=== PATIENT | female | born 1985 | race Caucasian/White ===

== ENCOUNTER → 2020-04-16 | Outpatient (CLI) | payer OTHER | LOC: M LABSMTC 12:58 | PROVIDERS: ATTEND Family Medicine | DX: Z20.822 Contact with and (suspected) exposure to COVID-19 (principal) | CPT/HCPCS: C9803; U0003 ==

== ENCOUNTER → 2021-03-22 | Outpatient (CLI) | payer OTHER ==
[2021-03-22 10:56] LABS: HEMATOCRIT 35.9 % (36.0-47.0); HEMOGLOBIN 11.5 g/dl (12.0-15.5); MEAN CORPUSCULAR HEMOGLOBIN 31.3 pg (27.0-33.0); MEAN CORPUSCULAR VOLUME 97.8 fl (80.0-96.0); PLATELET COUNT, AUTOMATED 208 10^3/uL (150-450); RED BLOOD COUNT 3.67 10^6/uL (4.00-5.40); WHITE BLOOD COUNT 10.9 10^3/uL (4.0-10.0)
[2021-03-22 12:15] LABS: GC DNA AMPLIFICATION NEGATIVE (NEGATIVE)
== END ==
LOC: M PLALAB 08:41
PROVIDERS: ATTEND Specialist
DX: Z34.82 Encounter for supervision of other normal pregnancy, second trimester (principal)
CPT/HCPCS: 36415; 82950; 85027; 86850; 86900; 86901; 87810; 87850; G0463

== ENCOUNTER → 2021-05-19 | Outpatient (REF) | payer OTHER | LOC: M SFHCWAGY 12:43 | PROVIDERS: ATTEND Advanced Practice Midwife | DX: O09.523 Supervision of elderly multigravida, third trimester (principal) ==

== ENCOUNTER 2021-06-13 01:58 | Inpatient (IN) | payer OTHER ==
[~2021-06-13] VITALS: Ht 177.8 cm; Wt 97.6 kg
[2021-06-13] VITALS (12 sets, daily range): BP systolic 111–182; BP diastolic 58–82
[2021-06-13] MEDS ORDERED: PENICILLIN G POTASSIUM IV 5 MU in D5W MINI-BAG PLUS 100 ML IV STA (02:27)
[2021-06-13] MEDS ORDERED: METHYLERGONOVINE MALEATE 0.2 MG/ML VIAL (J2210) IM PRN (02:30)
[2021-06-13] MEDS ORDERED: LIDOCAINE 1% MDV 20ML VIAL INFIL PRN (02:30)
[2021-06-13] MEDS ORDERED: OXYTOCIN DRIP 30 UNITS in IV 1 EA IV PRN ×4 (02:30)
[2021-06-13] MEDS ORDERED: TRANEXAMIC ACID INJection 1,000 MG in NS 100 ML IV PRN (02:30)
[2021-06-13] MEDS ORDERED: LACTATED RINGER'S 1000 ML IV PRN (02:30)
[2021-06-13] MEDS ORDERED: CARBOPROST TROMETHAMINE 250 MCG/ML AMP IM PRN (02:30)
[2021-06-13] MEDS ORDERED: MAGN100T PO (02:51)
[2021-06-13] MEDS ORDERED: OMEP40CA4 PO (02:51)
[2021-06-13 02:53] LABS: HEMATOCRIT 34.5 % (36.0-47.0); HEMOGLOBIN 11.8 g/dl (12.0-15.5); MEAN CORPUSCULAR HEMOGLOBIN 32.1 pg (27.0-33.0); MEAN CORPUSCULAR HGB CONC 34.2 g/dl (32.0-36.5); MEAN CORPUSCULAR VOLUME 93.8 fl (80.0-96.0); PLATELET COUNT, AUTOMATED 178 10^3/uL (150-450); RED BLOOD COUNT 3.68 10^6/uL (4.00-5.40); WHITE BLOOD COUNT 12.3 10^3/uL (4.0-10.0)
[2021-06-13] MEDS ORDERED: OXYTOCIN 30 UNITS IN 0.9% NaCl 500ML IV BAG (J2590) As Ordered ONE (06:00)
[2021-06-13] MEDS ORDERED: PENICILLIN G POTASSIUM IV 2.5 MU in IV 1 EA IV SCH (07:00)
[2021-06-13] MEDS ORDERED: PRENTAB9 PO (07:24)
[2021-06-13] MEDS ORDERED: ACET500P3 PO (07:25)
[2021-06-13] MEDS ORDERED: DIBUCAINE 1% OINTMENT 30GM TOP PRN (08:10)
[2021-06-13] MEDS ORDERED: MEASLES,MUMPS,RUBELLA VACCINE INJ (MMR-II) (90707) SC SCH (08:10)
[2021-06-13] MEDS ORDERED: RHOGAM 300 MCG (1500 IU) INJ (J2790) IM SCH (08:10)
[2021-06-13] MEDS ORDERED: METHYLERGONOVINE MALEATE 0.2 MG TAB PO PRN (08:10)
[2021-06-13] MEDS ORDERED: DOCUSATE SODIUM 100MG CAPSULE PO PRN (08:10)
[2021-06-13] MEDS: PRENATAL VITAMINS CHEWABLE TABLET PO SCH (09:51)
[2021-06-13] MEDS: IBUPROFEN 600MG TAB PO PRN ×2 (09:52→15:55)
[2021-06-13] MEDS: ACETAMINOPHEN 500 MG TAB PO PRN ×2 (13:05→19:16)
[2021-06-14] MEDS: IBUPROFEN 600MG TAB PO PRN ×2 (01:43→08:15)
[2021-06-14 06:36] VITALS: BP 128/75
[2021-06-14] MEDS: PRENATAL VITAMINS CHEWABLE TABLET PO SCH (08:15)
[2021-06-14 08:44] LABS: HEMATOCRIT 32.4 % (36.0-47.0); HEMOGLOBIN 10.7 g/dl (12.0-15.5); MEAN CORPUSCULAR HEMOGLOBIN 31.8 pg (27.0-33.0); MEAN CORPUSCULAR VOLUME 96.1 fl (80.0-96.0); PLATELET COUNT, AUTOMATED 181 10^3/uL (150-450); RED BLOOD COUNT 3.37 10^6/uL (4.00-5.40); WHITE BLOOD COUNT 13.2 10^3/uL (4.0-10.0)
[2021-06-14] MEDS: ACETAMINOPHEN 500 MG TAB PO PRN (12:44)
== END 2021-06-14 14:15 | disposition home or self-care (01) | DRG 807 ==
LOC: M LDO 01:58 → M LDI 02:21 → M OBS 11:26
PROVIDERS: ADMIT Obstetrics & Gynecology; ATTEND Obstetrics & Gynecology
PROC: 10D17Z9 Manual Extraction of Products of Conception, Retained, Via Natural or Artificial Opening (ICD-10-PCS; principal; 2021-06-13)
PROC: 10E0XZZ Delivery of Products of Conception, External Approach (ICD-10-PCS; 2021-06-13)
PROC: 10907ZC Drainage of Amniotic Fluid, Therapeutic from Products of Conception, Via Natural or Artificial Opening (ICD-10-PCS; 2021-06-13)
DX: O99.824 Streptococcus B carrier state complicating childbirth (principal); Z37.0 Single live birth; Z3A.40 40 weeks gestation of pregnancy; O77.0 Labor and delivery complicated by meconium in amniotic fluid; O73.1 Retained portions of placenta and membranes, without hemorrhage

== ENCOUNTER → 2021-08-06 | Outpatient (CLI) | payer OTHER ==
[~2021-08-06] MED LIST: ACET500P3 PO; MAGN100T PO; OMEP40CA4 PO; PRENTAB9 PO
[2021-08-06 14:41] LABS: BASO % 0.5 % (0.0-1.0); EOS # 0.2 10^3/uL (0.0-0.5); EOS % 2.4 % (0.0-3.0); HEMATOCRIT 42.2 % (36.0-47.0); HEMOGLOBIN 13.4 g/dl (12.0-15.5); LYMPH # 2.7 10^3/uL (1.5-5.0); LYMPH % 35.4 % (24.0-44.0); MEAN CORPUSCULAR HEMOGLOBIN 30.9 pg (27.0-33.0); MEAN CORPUSCULAR HGB CONC 31.8 g/dl (32.0-36.5); MEAN CORPUSCULAR VOLUME 97.2 fl (80.0-96.0); MONO # 0.7 10^3/uL (0.0-0.8); MONO % 8.6 % (2.0-8.0); NEUTROPHILS % 52.8 % (36.0-66.0); PLATELET COUNT, AUTOMATED 267 10^3/uL (150-450); RED BLOOD COUNT 4.34 10^6/uL (4.00-5.40); WHITE BLOOD COUNT 7.6 10^3/uL (4.0-10.0)
[2021-08-06 15:24] LABS: ERYTHROCYTE SEDIMENTATION RATE 13 mm/hr (0-20)
[2021-08-06 16:07] LABS: ALBUMIN 3.8 GM/DL (3.2-5.2); ALT/SGPT 25 U/L (12-78); BILIRUBIN,TOTAL 0.3 MG/DL (0.2-1.0); BLOOD UREA NITROGEN 12 MG/DL (7-18); CALCIUM LEVEL 8.8 MG/DL (8.5-10.1); CARBON DIOXIDE LEVEL 29 MEQ/L (21-32); CHLORIDE LEVEL 107 MEQ/L (98-107); CREATININE FOR GFR 0.76 MG/DL (0.55-1.30); FOLATE > 24.0 NG/ML; FREE T4 0.82 NG/DL (0.76-1.46); GLOMERULAR FILTRATION RATE > 60.0 (>60); GLUCOSE, FASTING 67 MG/DL (70-100); POTASSIUM SERUM 4.8 MEQ/L (3.5-5.1); RHEUMATOID FACTOR QUANT < 10.0 IU/ML (<15.0); SODIUM LEVEL 140 MEQ/L (136-145); TOTAL PROTEIN 7.8 GM/DL (6.4-8.2); VITAMIN B12 LEVEL 351 PG/ML
[2021-08-07 19:08] LABS: ANTINUCLEAR ANTIBODIES DIRECT Negative (Negative); SJOGREN'S ANTI SS-A <0.2 AI (0.0-0.9); SJOGREN'S ANTI SS-B <0.2 AI (0.0-0.9)
== END ==
LOC: M PLALAB 09:53
PROVIDERS: ATTEND Nurse Practitioner Family
DX: M12.9 Arthropathy, unspecified (principal)

== ENCOUNTER → 2025-01-07 | Outpatient (CLI) | payer OTHER ==
[2025-01-07 12:33] LABS: BASO # 0.0 10^3/uL (0.0-0.2); BASO % 0.4 % (0.0-1.0); EOS # 0.2 10^3/uL (0.0-0.5); EOS % 2.7 % (0.0-3.0); LYMPH # 2.9 10^3/uL (1.5-5.0); LYMPH % 40.5 % (24.0-44.0); MONO # 0.5 10^3/uL (0.0-0.8); MONO % 6.8 % (2.0-8.0); NEUTROPHILS # 3.4 10^3/uL (1.5-8.5); NEUTROPHILS % 49.0 % (36.0-66.0); PLATELET COUNT, AUTOMATED 265 10^3/uL (150-450)
[2025-01-07 13:03] LABS: ALT/SGPT 17 U/L (7.0-40); AST/SGOT 16 U/L (<34); CALCIUM LEVEL 8.6 MG/DL (8.5-10.1); CARBON DIOXIDE LEVEL 29 MMOL/L (20-31); CHLORIDE LEVEL 101 MMOL/L (98-107); CHOLESTEROL LEVEL 144 MG/DL (<200); CHOLESTEROL RISK RATIO 3.60 (<5); CREATININE FOR GFR 0.66 MG/DL (0.55-1.30); FREE T4 1.21 NG/DL (0.89-1.76); GLOMERULAR FILTRATION RATE > 90.0 (>58); IRON (FE) 72 UG/DL (50-170); LDL CHOLESTEROL 87.3 MG/DL (<100); NON-HDL-C 104.1 MG/DL; PERCENT SATURATION 26.1 % (13.2-45.0); POTASSIUM SERUM 3.9 MMOL/L (3.5-5.1); RHEUMATOID FACTOR QUANT < 3.5 IU/ML (<14); SODIUM LEVEL 138 MMOL/L (136-145); THYROID PEROXIDASE ANTIBODY < 28.0 U/ML (<60.0); TRIGLYCERIDES LEVEL 84 MG/DL (<150)
[2025-01-07 13:05] LABS: TOTAL 25(OH) VITAMIN D 38.9 NG/ML (20.0-100.0)
[2025-01-09 00:52] LABS: SSA SJOGRENS A <1.0 NEG AI (<1.0 NEG); SSB SJOGRENS B <1.0 NEG AI (<1.0 NEG)
== END ==
LOC: M WUC 08:23
PROVIDERS: ATTEND Nurse Practitioner Family
DX: Z00.00 Encounter for general adult medical examination without abnormal findings (principal); R63.5 Abnormal weight gain; M12.9 Arthropathy, unspecified